=== PATIENT | male | born 1940 | race Caucasian/White ===

== ENCOUNTER 2018-05-12 09:44 | Emergency (ER) | payer MEDICARE ==
[2018-05-12] MEDS ORDERED: Ketorolac Tromethamine 30 MG/ML VIAL ONE (10:22)
--- NOTE | 2018-05-12 10:43 | RAD ---
RIGHT FOOT THREE VIEWS: HISTORY: Right foot pain and swelling. History of gout. COMPARISON: None. FINDINGS: Three views of the right foot show no evidence of acute fracture or dislocation. There is a small er osion at the lateral aspect of the small toe metatarsophalangeal joint. No other osseous erosions ar e seen. Mild soft tissue swelling is seen along the lateral aspect of the foot, near the metatarsoph alangeal joint. IMPRESSION: Possible small erosion of the small toe, at the metatarsophalangeal joint, could be secondary to gout . POS: SHAVON
--- NOTE | 2018-05-12 10:45 | ULT ---
VENOUS DOPPLER ULTRASOUND OF THE RIGHT LOWER EXTREMITY: Date: 05/12/18 HISTORY: Right lower extremity pain and edema. TECHNIQUE: Rowley scale ultrasound with color flow and spectral Doppler imaging of the deep venous system of the r ight lower extremity was performed. FINDINGS: There is good flow, compression, and augmentation noted in the right common femoral, femoral, deep fe moral, popliteal, posterior tibial, and greater saphenous veins. IMPRESSION: No evidence of deep venous thrombosis in the right lower extremity. POS: C
== END 2018-05-12 10:59 | disposition home or self-care (01) ==
LOC: SCSER 09:44
DX: M10.9 Gout, unspecified (principal); Z79.899 Other long term (current) drug therapy
CPT/HCPCS: 96372; J1885

== ENCOUNTER 2019-01-09 13:06 | Outpatient (CLI) | payer MEDICARE ==
--- NOTE | 2019-01-09 14:16 | ULT ---
RIGHT LOWER EXTREMITY VENOUS DOPPLER: Date: 01/09/19 PROVIDED CLINICAL HISTORY: Right leg edema. FINDINGS: Rowley scale and color Doppler sonography with spectral analysis was performed of the right common fem oral, femoral, popliteal, posterior tibial, greater saphenous, and profunda femoral veins, demonstrat ing a normal sonographic appearance to each. IMPRESSION: No sonographic evidence for right lower extremity deep venous thrombosis. POS: TPC
--- NOTE | 2019-01-09 14:47 | CT ---
CT ABDOMEN AND PELVIS WITHOUT CONTRAST: HISTORY: Long-term painful urination. COMPARISON: None. FINDINGS: Lung bases are clear. No pericardial effusion. The examination is limited due to motion artifact. No nephroureterolithiasis or hydroureteral nephrosis. No secondary evidence of a recently passed sto ne. Atherosclerotic plaque of the aorta without aneurysmal dilatation. There is a focal area of ectasia of the infrarenal abdominal aorta, although it only measures up to 2.3 cm for a length of 1 cm. Noncontrast evaluation of the spleen, the pancreas, liver, and gallbladder are unremarkable. No dila elmira loops of large or small bowel. Views of the sigmoid colon without active current inflammation. Chronic compression fracture. Urinary bladder is mildly distended. On the right there is a fat-containing femoral hernia and indir ect inguinal hernia. IMPRESSION: 1. No nephroureterolithiasis or hydroureteral nephrosis. No secondary evidence of a recently passed stone. 2. No acute inflammatory process in the abdomen or pelvis. 3. Moderate diverticular disease of the sigmoid colon without active current inflammation. POS: SHAVON
== END 2019-01-09 13:07 | disposition home or self-care (01) ==
LOC: SCSCT 13:06
PROVIDERS: ATTEND Family Medicine
DX: M79.89 Other specified soft tissue disorders (principal); R30.9 Painful micturition, unspecified; K57.30 Diverticulosis of large intestine without perforation or abscess without bleeding
CPT/HCPCS: 74176

== ENCOUNTER 2019-02-28 08:30 | Outpatient (CLI) | payer MEDICARE ==
[2019-02-28] MEDS ORDERED: Iopamidol 370 76% 100 ML VIAL ONE (09:00)
[2019-02-28 09:08] LABS: Bilirubin Negative (Negative); Blood, Urine Negative (Negative); Clarity Slightly Cloudy (Clear); Glucose, Urine (Dipstick) Negative (Negative); Leukocyte Negative (Negative); Nitrite Negative (Negative); Protein, Urine (Dipstick) Negative (Neg-Trace); Urobilinogen 0.2 mg/dL (0.2-1.0)
[2019-02-28 09:17] LABS: Urine Culture Reflex No No
[2019-02-28 09:19] LABS: RBC/HPF 0-3 HPF (0-3); Squamous Epithelial 0-3 HPF (0-3); WBC/HPF 0-3 HPF (0-3)
[2019-02-28 09:20] LABS: Bacteria/HPF None Seen HPF (None Seen); Hyaline Casts/LPF 0-3 HYALINE CAST LPF (0-3 Hyaline)
--- NOTE | 2019-02-28 14:01 | CT ---
CT ABDOMEN AND PELVIS WITH AND WITHOUT CONTRAST: INDICATIONS: Benign prostatic hypertrophy. TECHNIQUE: Multiple axial tomograms obtained through the abdomen and pelvis pre and post IV contrast. FINDINGS: Review of the urinary tract on the noncontrast study reveals a 3 cm parapelvic cyst on the right. Th is appears to represent dilated collecting structures on the noncontrast exam, although comparison wi th post contrast and delayed study confirms that this is a large parapelvic cyst. There are small pa rapelvic cysts in the left kidney as well. There is no urinary tract calculus. No hydronephrosis. The ureters are of normal caliber. The urinary bladder is mildly distended with very mild bladder wa ll thickening. There is mild prostatic hypertrophy, which does impinge on the floor of the bladder. Post contrast images show numerous small low density lesions involving both kidneys. The largest of these measures up to 1 cm with most being subcentimeter and too small to characterize. This most lik jeimy represents multiple small renal cystic lesions. No definite enhancing or solid renal lesion iden tified. On delayed sequence, contrast is seen in the collecting structures, which appear unremarkabl e. The liver, spleen, pancreas, and adrenal glands are unremarkable. Small bowel loops are unremarkable. The colon is unremarkable with diverticulosis of the sigmoid. T he aorta is of normal caliber with atherosclerotic calcification. Osseous survey shows a focal area of sclerosis involving the posterior right ileum and another focal area of sclerosis involving the le ft iliac wing. These lesions most likely represent focal benign bone islands, although sclerotic met astases are not completely excluded. Osseous structures are otherwise unremarkable with degenerative spine change. IMPRESSION: 1. There are bilateral renal parapelvic cysts and numerous small cortical cystic lesions in both kid neys, seen on post contrast images. 2. Prostatic hypertrophy indenting the floor of the bladder. Mild bladder wall thickening. 3. Sclerotic foci in the ileum, probably benign bone islands; however, followup is recommended given the history of prostatic hypertrophy. POS: SHAVON
== END 2019-02-28 08:31 | disposition home or self-care (01) ==
LOC: SCSCT 08:30
PROVIDERS: ATTEND Urology
DX: N40.1 Benign prostatic hyperplasia with lower urinary tract symptoms (principal); N28.1 Cyst of kidney, acquired; R31.9 Hematuria, unspecified; N28.89 Other specified disorders of kidney and ureter; N32.89 Other specified disorders of bladder
CPT/HCPCS: 74178; 81001

== ENCOUNTER 2019-11-17 10:38 | Outpatient (CLI) | payer MEDICARE ==
[2019-11-17 11:24] LABS: #Basophils 0.1 thou/uL (0.0-0.2); #Eosinphils 0.1 thou/uL (0.0-0.7); #Lymphocytes 2.1 thou/uL (1.20-3.40); #Monocytes 0.9 thou/uL (0.11-0.59); #Neutrophils 5.7 thou/uL (1.40-6.50); %Basophils 0.8 % (0.0-1.0); %Eosinophils 1.3 % (0.0-10.0); %Lymphocytes 23.6 % (21.0-51.0); %Monocytes 9.8 % (0.0-10.0); %Neutrophils 64.6 % (42.0-75.0); Hemoglobin 16.6 g/dL (14.0-18.0); Mean Corpuscular HGB CONC 32.8 g/dL (32.0-36.0); Mean Corpuscular Hemoglobin 30.1 pg (27.0-31.0); Mean Corpuscular Volume 91.7 fL (78.0-98.0); Mean Platelet Volume 9.4 fL (7.4-10.4); Platelet Count 238 thou/uL (130-400); RBC Distribution Width 12.8 % (11.5-14.5); Red Blood Cell (RBC) Count 5.53 mill/uL (4.70-6.10); White Blood Cell (WBC) Count 8.9 thou/uL (4.8-10.8)
[2019-11-17 11:30] LABS: Bacteria/HPF None Seen HPF (None Seen); Bilirubin Negative (Negative); Blood, Urine 1+ (Negative); Clarity Clear (Clear); Glucose, Urine (Dipstick) Normal (Negative); Leukocyte Negative Leu/uL (Negative); Mucous/LPF Rare LPF (<2+); Nitrite Negative (Negative); Protein, Urine (Dipstick) Negative (Neg-Trace); Squamous Epithelial 0-3 HPF (0-3); Urobilinogen Normal mg/dL (Less than 2)
[2019-11-17 11:42] LABS: Anion Gap 12 mmol/L (10-20); BUN (Urea Nitrogen) 21 mg/dL (8.4-25.7); Calc. Creatinine Clearance 0 mL/min (70-130); Calcium 9.7 mg/dL (7.8-10.44); Carbon Dioxide 24 mmol/L (23-31); Chloride 107 mmol/L (98-107); Estimated GFR-MDRD 60; Glucose 98 mg/dL (83-110); Potassium 4.8 mmol/L (3.5-5.1); Sodium 138 mmol/L (136-145)
[2019-11-17 11:45] LABS: PTT 30.7 SEC (22.9-36.1)
== END 2019-11-17 10:39 | disposition home or self-care (01) ==
LOC: LABBT 10:38
PROVIDERS: ATTEND Urology
DX: Z01.818 Encounter for other preprocedural examination (principal); N40.1 Benign prostatic hyperplasia with lower urinary tract symptoms; E83.52 Hypercalcemia; R31.9 Hematuria, unspecified; Z87.442 Personal history of urinary calculi
CPT/HCPCS: 80048; 81001; 85025; 85610; 85730; 87086; 93005; 93010

== ENCOUNTER 2019-11-27 07:36 | Day surgery (SDC) | payer MEDICARE ==
[2019-11-17 10:46] VITALS: BMI 25.1
[2019-11-27] MEDS ORDERED: Levofloxacin 500 mg/D5W 100 ml Premix Bag ONE (09:19)
[2019-11-27] MEDS ORDERED: PROPOFOL 200 MG/20 ML VIAL ONE (09:40)
[2019-11-27] MEDS ORDERED: Phenazopyridine HCl 97.5 MG TABLET ONE ×2 (11:19→11:26)
[2019-11-27] MEDS ORDERED: Oxybutynin 5 MG TAB ONE (11:19)
--- NOTE | 2019-11-27 15:26 | OP ---
DATE OF PROCEDURE: 11/27/2019 PREOPERATIVE DIAGNOSIS: An 79-year-old male with history of benign prostatic hypertrophy, on dual medical therapy. An IPSS score of 23. POSTOPERATIVE DIAGNOSIS: An 79-year-old male with history of benign prostatic hypertrophy, on dual medical therapy. An IPSS score of 23. PROCEDURES PERFORMED: Cystoscopy, UroLift implant x6. ANESTHESIA: TIVA. COMPLICATIONS: None apparent. DRAINS: 18-Citizen Of [place] 3-way Lee catheter to gravity leg bag. INDICATIONS FOR THE PROCEDURE AND HISTORY: Mr. Castillo is an 79-year-old male with history of gout, BPH, has been on dual medical therapy for BPH symptoms. He desires to proceed with UroLift. Risks, complications, and indications reviewed including bleeding, pain, infection, injury to adjacent organs, possible secondary procedure due to implant migration, urolithiasis, incrustation, warranting further treatment, possible treatment options including observation as an alternative treatment versus TURP was also addressed and they desired to proceed with minimally invasive approach. DESCRIPTION OF PROCEDURE: After an informed consent was signed, the patient was taken to the operating room, placed in a dorsal lithotomy position with the genital area prepped and draped in the usual surgical sterile fashion. A 21-Citizen [place] cystoscope was utilized for cystoscopy, which demonstrated normal anterior urethra. Prostatic urethra demonstrated bilobar hyperplasia of the prostate. Upon entering the bladder, there was trabeculated bladder consistent with chronic outlet obstruction. No bladder tumors were seen. At this time, a UroLift implant device was passed with a visual obturator. We approached the left lateral lobe first. Left lateral lobe implant was placed approximately a [id number] proximal to the bladder neck with reduction of lateral prox lobe. Total of 4 implants on the right, 2 implants on left lobe. We did stagger UroLift implant left proximal prostatic tissue, as there was evidence of a median bar with early median lobe, not into the intravesical component. The median bar component was difficult to treat, as there was no obvious sulcus to reduce this component. As such, we staggered the left lateral lobe near the bladder neck creating a wider channel anteriorly. The first implant on the right side demonstrated it was somewhat close to the bladder neck, however, not in the bladder mucosa or in the bladder neck itself. We did stage the implant numerous occasions, although was close to the bladder neck, not in the bladder mucosa or encroaching the bladder neck, therefore was left in situ. Intraoperative photos were taken and anterior channel was created with some subtle cat-eye effect. However, resolution of lateral obstructing lobes with a wide channel was created. He tolerated the procedure well. Given his age, I will leave him with an indwelling Lee catheter overnight. He will return to clinic tomorrow for a catheter removal, voiding trial, as there is some mucosal sloughing and inflammation of the anterior bladder neck. He is discharged on ciprofloxacin for a course of 5 days and Azo over-the- counter p.r.n. Anticipate voiding trial catheter removal tomorrow. Job ID: [id number] [facility]
== END 2019-11-27 14:30 | disposition home or self-care (01) ==
LOC: SDC 07:36
PROVIDERS: ATTEND Urology
PROC: 0T7D8DZ Dilation of Urethra with Intraluminal Device, Via Natural or Artificial Opening Endoscopic (ICD-10-PCS; principal; 2019-11-27)
DX: N40.1 Benign prostatic hyperplasia with lower urinary tract symptoms (principal); R39.14 Feeling of incomplete bladder emptying; R31.9 Hematuria, unspecified; I10 Essential (primary) hypertension; E83.52 Hypercalcemia; Z79.899 Other long term (current) drug therapy
CPT/HCPCS: C1889; C9740; J0690; J1956

== ENCOUNTER 2019-12-15 05:56 | Day surgery (SDC) | payer MEDICARE ==
[2019-12-14 13:35] VITALS: BMI 24.3
[2019-12-14 14:48] LABS: Hemoglobin 16.1 g/dL (14.0-18.0); Mean Corpuscular HGB CONC 31.3 g/dL (32.0-36.0); Mean Corpuscular Volume 92.7 fL (78.0-98.0); Mean Platelet Volume 9.5 fL (7.4-10.4); Platelet Count 228 thou/uL (130-400); RBC Distribution Width 12.9 % (11.5-14.5); Red Blood Cell (RBC) Count 5.54 mill/uL (4.70-6.10); White Blood Cell (WBC) Count 11.9 thou/uL (4.8-10.8)
[2019-12-14 14:53] LABS: PTT 32.6 SEC (22.9-36.1); Prothrombin Time 13.1 SEC (12.0-14.7)
[2019-12-14 15:08] LABS: Anion Gap 10 mmol/L (10-20); BUN (Urea Nitrogen) 16 mg/dL (8.4-25.7); Calc. Creatinine Clearance 0 mL/min (70-130); Calcium 9.8 mg/dL (7.8-10.44); Carbon Dioxide 27 mmol/L (23-31); Chloride 105 mmol/L (98-107); Estimated GFR-MDRD 82; Glucose 86 mg/dL (83-110); Potassium 4.3 mmol/L (3.5-5.1); Sodium 138 mmol/L (136-145)
[2019-12-15] MEDS ORDERED: Midazolam HCl 2 mg/2 ml Vial ONE (06:20)
[2019-12-15] MEDS ORDERED: Fentanyl 100 MCG/2 ML VIAL ONE ×2 (06:20→09:06)
[2019-12-15] MEDS ORDERED: Levofloxacin 500 mg/D5W 100 ml Premix Bag ONE (06:20)
[2019-12-15] MEDS ORDERED: Oxybutynin 5 MG TAB ONE (08:51)
[2019-12-15] MEDS ORDERED: Phenazopyridine HCl 97.5 MG TABLET ONE ×2 (08:52)
--- NOTE | 2019-12-15 09:25 | OP ---
DATE OF PROCEDURE: 12/15/2019 PREOPERATIVE DIAGNOSES: 1. History of benign prostatic hyperplasia, status post UroLift. 2. Gross hematuria. POSTOPERATIVE DIAGNOSES: 1. History of benign prostatic hyperplasia, status post UroLift. 2. Gross hematuria. PROCEDURES PERFORMED: Cystoscopy, transurethral resection of prostate, fulguration of bladder neck, and evacuation of clots. ANESTHESIA: LMA. DISPOSITION: To recovery room in stable condition. SPECIMEN: TUR of prostate. ESTIMATED BLOOD LOSS: Minimal. COMPLICATIONS: None apparent. DRAINS: 18-Tajik 30 mL three-way Lee catheter to gravity leg bag. FINDINGS: 1. Mild clots within the bladder. 2. No evidence of UroLift implantation exposure of the bladder neck. 3. Oozing from the bladder neck, prostatic urethra source. No evidence of bladder stones or urethral stones. INDICATIONS FOR PROCEDURE AND HISTORY: Mr. Castillo is a pleasant 79-year-old male with history of prostatitis, incomplete emptying, BPH, who underwent UroLift last month. The patient presented to my office, acutely, due to gross hematuria. He presents today for exam under anesthesia, fulguration of bleed, possible TUR and removal of implant if exposed. Indications for exam under anesthesia were discussed with him in detail and he desired to proceed. DESCRIPTION OF PROCEDURE: After an informed consent was signed, the patient was taken to the operating room, placed in a dorsal lithotomy position with the genital area prepped and draped in the usual surgical sterile fashion. A 21-Tajik cystoscope was utilized for cystoscopy and a 30-degree and a 70-degree lens was utilized. The prostatic urethra was staged, which demonstrated no gross evidence of exposed UroLift urethral tab. There is a mechanical defect from the previous UroLift as anticipated, with improvement of his lateral obstructing lobes. He does have a cat-eye effect at the bladder neck, resulting in component of high median bar. Oozing and the bleeding source appears to be from the bladder neck as the tissue appears quite friable. He is known to have history of chronic prostatitis. There were no active arterial bleed appreciated. There was mild amount of clots within the bladder. We used a 30-degree and a 70-degree lens to further survey the bladder, which demonstrated diffuse trabeculation consistent with chronic outlet obstruction. The UOs are well away from the bladder neck. The left UO was somewhat more subtle due to trabeculation, however, the trigone was well away from the bladder neck. No bladder stones were seen nor prostatic urethral stones. I did use a 70-degree lens, inspecting the bladder neck, demonstrating no evidence of exposed urethral tab component from the UroLift. At this time, we evacuated the blood clots, within the bladder appeared to be old venous bleeding. Approximately 50 mL of clots were evacuated. Subsequently, we transitioned to a 24-Tajik continuous resectoscope sheath with a visual obturator. We fulgurated the source of oozing, which was mostly at the bladder neck Care was taken to monitor him for conduction of possible urethral tab exposure. I did not see any obvious urethral tab that was visualized. There were defects in the prostatic urethra from the UroLift resolving the previous obstructing lateral lobes. I did perform a transurethral resection of the bladder neck and dorsal ventral urethral tissue that may contribute to some obstruction residual as there was cat-eye effect from the bladder neck from UroLift. TURP was performed gingerly, not to conduct energy of the Gyrus through the urethral tabs. A nice channel was created with good hemostasis. I did take some time inspecting his prostatic urethra with all pressure and irrigation held with no further active source of bleeding appreciated. all chips of the prostatic resection was removed with an Ellik evacuator. An 18-Tajik 30 mL Lee catheter was passed without significant issues and 30 mL insufflated. Subsequent urine output was crystal clear. He was discharged with Omnicef x7 days, Azo p.r.n., tramadol 50 mg p.r.n. He is to continue his BPH medications for now until followup appointment. He will see me on December 19 at 8:00 a.m. for a voiding trial. Job ID: [id number] [facility]
[2019-12-15] MEDS ORDERED: HYDROcodone/Acetaminophen 5/325 mg Tablet ONE ×2 (10:12→11:32)
[2019-12-15] MEDS ORDERED: PROPOFOL 200 MG/20 ML VIAL ONE (10:30)
[2019-12-15] MEDS ORDERED: Ondansetron PF 4 MG/2 ML Vial ONE (10:30)
[2019-12-15] MEDS ORDERED: EPHEDRINE 25 MG/5 ML SYRINGE ONE (10:30)
[2019-12-15] MEDS ORDERED: Lidocaine 1% PF 5 ML VIAL ONE (10:30)
[2019-12-15] MEDS ORDERED: PHENYLEPHRINE-NS 100 MCG/ML 10 ML SYRINGE ONE (10:30)
== END 2019-12-15 11:50 | disposition home or self-care (01) ==
LOC: SDC 05:56
PROVIDERS: ATTEND Urology
PROC: 0V508ZZ Destruction of Prostate, Via Natural or Artificial Opening Endoscopic (ICD-10-PCS; principal; 2019-12-15)
DX: N40.1 Benign prostatic hyperplasia with lower urinary tract symptoms (principal); R33.8 Other retention of urine; R31.0 Gross hematuria; I10 Essential (primary) hypertension; Z79.899 Other long term (current) drug therapy; Z88.8 Allergy status to other drugs, medicaments and biological substances
CPT/HCPCS: 36415; 80048; 85027; 85610; 85730; 86850; 86900; 86901; 88305; J1956; J2001; J2250; J2405; J2704; J3010

== ENCOUNTER 2020-04-08 | Outpatient (CLI) | payer MEDICARE | END 2020-04-08 07:23 | disposition home or self-care (01) | DX: E21.3 Hyperparathyroidism, unspecified (principal); R94.8 Abnormal results of function studies of other organs and systems ==

== ENCOUNTER 2020-04-29 09:18 | Outpatient (CLI) | payer MEDICARE ==
--- NOTE | 2020-04-29 13:29 | NM ---
WHOLE BODY BONE SCAN: HISTORY: History of abnormal radiotracer accumulation within the right proximal humerus on a parathyr oid evaluation dated 04/08/2020. RADIOPHARMACEUTICAL: 33 mCi technetium 99m-MDP injected intravenously COMPARISON:Parathyroid scan dated April 08, 2020 CORRELATION: None FINDINGS: No suspicious radiotracer accumulation is seen in the region of the proximal right humerus. There is degenerative activity seen involving the glenohumeral joints, AC joints, spine, knees and feet. IMPRESSION: No scintigraphic evidence of osseous metastatic disease.
== END 2020-04-29 09:19 | disposition home or self-care (01) ==
LOC: NM 09:18
PROVIDERS: ATTEND Specialist
DX: C80.1 Malignant (primary) neoplasm, unspecified (principal)
CPT/HCPCS: 78306; A9503

== ENCOUNTER 2020-08-19 15:35 | Outpatient (CLI) | payer MEDICARE ==
--- NOTE | 2020-08-19 16:23 | RAD ---
LUMBAR SPINE THREE VIEWS: History: Back pain. FINDINGS: Lumbar vertebrae maintain normal height and alignment. The disc spaces are preserved. There are mild degenerative osteophytes present. Facet hypertrophy. IMPRESSION: Mild to moderate degenerative changes of the lumbar spine. POS: OFF
== END 2020-08-19 15:36 | disposition home or self-care (01) ==
LOC: SCSRAD 15:35
PROVIDERS: ATTEND Family Medicine
DX: S39.012A Strain of muscle, fascia and tendon of lower back, initial encounter (principal); M47.816 Spondylosis without myelopathy or radiculopathy, lumbar region
CPT/HCPCS: 72100

== ENCOUNTER 2021-04-25 23:29 | Observation (INO) | payer MEDICARE ==
[2021-04-26 00:55] LABS: #Basophils 0.1 thou/uL (0.0-0.2); #Eosinphils 1.1 thou/uL (0.0-0.7); #Lymphocytes 2.2 thou/uL (1.20-3.40); #Monocytes 0.8 thou/uL (0.11-0.59); #Neutrophils 4.8 thou/uL (1.40-6.50); %Basophils 1.5 % (0.0-1.0); %Eosinophils 11.6 % (0.0-10.0); %Lymphocytes 24.8 % (21.0-51.0); %Monocytes 8.6 % (0.0-10.0); %Neutrophils 53.5 % (42.0-75.0); Hemoglobin 16.3 g/dL (14.0-18.0); Mean Corpuscular HGB CONC 33.4 g/dL (32.0-36.0); Mean Corpuscular Hemoglobin 30.8 pg (27.0-31.0); Mean Platelet Volume 8.5 fL (7.4-10.4); Platelet Count 233 thou/uL (130-400); RBC Distribution Width 13.4 % (11.5-14.5); Red Blood Cell (RBC) Count 5.31 mill/uL (4.70-6.10)
[2021-04-26 01:16] LABS: ALT (SGPT) 20 U/L (8-55); AST (SGOT) 18 U/L (5-34); Alkaline Phosphatase 81 U/L (40-110); Anion Gap 11 mmol/L (10-20); BUN (Urea Nitrogen) 13 mg/dL (8.4-25.7); Bilirubin, Total 0.6 mg/dL (0.2-1.2); Calc. Creatinine Clearance 0 mL/min (70-130); Carbon Dioxide 22 mmol/L (23-31); Chloride 109 mmol/L (98-107); Globulin 2.4 g/dL (2.4-3.5); Glucose 120 mg/dL (83-110); Potassium 3.6 mmol/L (3.5-5.1); Protein, Total 6.4 g/dL (5.8-8.1); Sodium 138 mmol/L (136-145)
[2021-04-26] MEDS ORDERED: Cefepime 2 GM VIAL ONE (01:36)
[2021-04-26] MEDS ORDERED: VANCOMYCIN 2 GRAM/400 ML BAG 2 GM in Premix Bag 1 BAG IVPB SCH (02:00)
[2021-04-26] MEDS ORDERED: Ondansetron PF 4 MG/2 ML Vial IVP PRN (03:26)
[2021-04-26] MEDS ORDERED: Acetaminophen 325 MG TAB PO PRN (03:26)
[2021-04-26] MEDS ORDERED: hydrALAZINE 20 MG/ML VIAL SLOW IVP PRN (03:28)
[2021-04-26 04:49] VITALS: BMI 25.6
[2021-04-26 06:48] LABS: #Basophils 0.1 thou/uL (0.0-0.2); #Eosinphils 0.8 thou/uL (0.0-0.7); #Neutrophils 7.2 thou/uL (1.40-6.50); %Eosinophils 6.9 % (0.0-10.0); %Monocytes 9.3 % (0.0-10.0); %Neutrophils 64.9 % (42.0-75.0); Hemoglobin 15.9 g/dL (14.0-18.0); Mean Corpuscular HGB CONC 33.4 g/dL (32.0-36.0); Mean Corpuscular Hemoglobin 30.8 pg (27.0-31.0); Mean Corpuscular Volume 92.3 fL (78.0-98.0); Mean Platelet Volume 8.7 fL (7.4-10.4); Platelet Count 225 thou/uL (130-400); RBC Distribution Width 13.3 % (11.5-14.5); Red Blood Cell (RBC) Count 5.14 mill/uL (4.70-6.10); White Blood Cell (WBC) Count 11.1 thou/uL (4.8-10.8)
[2021-04-26 07:11] LABS: Anion Gap 9 mmol/L (10-20); BUN (Urea Nitrogen) 11 mg/dL (8.4-25.7); Calc. Creatinine Clearance 76 mL/min (70-130); Calcium 9.5 mg/dL (7.8-10.44); Carbon Dioxide 23 mmol/L (23-31); Chloride 109 mmol/L (98-107); Glucose 96 mg/dL (83-110); Potassium 4.1 mmol/L (3.5-5.1); Sodium 137 mmol/L (136-145)
[2021-04-26] MEDS ORDERED: Lisinopril 20 MG TAB PO SCH (09:00)
[2021-04-26] MEDS ORDERED: Iopamidol 370 76% 100 ML VIAL ONE (11:05)
[2021-04-26] MEDS: Vancomycin 1 GM in Premix Bag 1 BAG IVPB SCH (14:59)
[2021-04-26] MEDS ORDERED: Nystatin/Triamcinolone Cream 15 GM TUBE TOP SCH (15:45)
[2021-04-26 15:59] LABS: SARS-CoV-2 PCR by NAA Not Detected (NotDetected)
[2021-04-26] MEDS ORDERED: diphenhydrAMINE 25 MG CAP PO PRN (16:53)
[2021-04-26] MEDS ORDERED: Clindamycin/D5W 300 MG/50 ML BAG IVPB SCH (18:00)
[2021-04-26] MEDS: Clindamycin/D5W 300 MG in Premix Bag 1 BAG IVPB SCH (18:07)
[2021-04-26] MEDS: Nystatin/Triamcinolone Cream 15 GM TUBE TOP SCH (20:56)
[2021-04-27] MEDS: Clindamycin/D5W 300 MG in Premix Bag 1 BAG IVPB SCH ×3 (00:28→11:39)
[2021-04-27] MEDS: Vancomycin 1 GM in Premix Bag 1 BAG IVPB SCH (03:54)
[2021-04-27 06:02] LABS: #Basophils 0.1 thou/uL (0.0-0.2); #Eosinphils 0.8 thou/uL (0.0-0.7); #Lymphocytes 1.9 thou/uL (1.20-3.40); #Monocytes 0.9 thou/uL (0.11-0.59); #Neutrophils 6.8 thou/uL (1.40-6.50); %Eosinophils 7.7 % (0.0-10.0); %Lymphocytes 18.4 % (21.0-51.0); %Monocytes 8.6 % (0.0-10.0); %Neutrophils 64.4 % (42.0-75.0); Hemoglobin 15.7 g/dL (14.0-18.0); Mean Corpuscular HGB CONC 33.5 g/dL (32.0-36.0); Mean Corpuscular Volume 92.6 fL (78.0-98.0); Mean Platelet Volume 8.7 fL (7.4-10.4); Platelet Count 212 thou/uL (130-400); RBC Distribution Width 13.4 % (11.5-14.5); Red Blood Cell (RBC) Count 5.08 mill/uL (4.70-6.10); White Blood Cell (WBC) Count 10.6 thou/uL (4.8-10.8)
[2021-04-27 06:30] LABS: Anion Gap 9 mmol/L (10-20); BUN (Urea Nitrogen) 12 mg/dL (8.4-25.7); Calc. Creatinine Clearance 71 mL/min (70-130); Calcium 9.5 mg/dL (7.8-10.44); Carbon Dioxide 26 mmol/L (23-31); Chloride 106 mmol/L (98-107); Glucose 116 mg/dL (83-110); Sodium 137 mmol/L (136-145)
[2021-04-27] MEDS: Nystatin/Triamcinolone Cream 15 GM TUBE TOP SCH (08:20)
[2021-04-27] MEDS ORDERED: Lisinopril 20 MG TAB PO SCH (09:00)
[2021-04-27 14:40] VITALS: BP 148/78; TEMP 97.6
== END 2021-04-27 14:51 | disposition home or self-care (01) ==
LOC: ERS 23:29 → T4-A 04-26 02:47
PROVIDERS: ADMIT Internal Medicine; ATTEND Internal Medicine
DX: H60.11 Cellulitis of right external ear (principal); L03.221 Cellulitis of neck; I10 Essential (primary) hypertension; M10.9 Gout, unspecified; E89.2 Postprocedural hypoparathyroidism; Z79.899 Other long term (current) drug therapy; Z20.822 Contact with and (suspected) exposure to COVID-19
CPT/HCPCS: 70491; 80048 ×2; 80053; 85025 ×3; 96365; 96366; 96367; U0003; U0005; 36415; 96376; G0378; J0692; J3370; J3490; Q9967